=== PATIENT | male | born 1965 ===

== ENCOUNTER 2016-09-12 21:10 | Emergency (ER) | payer MEDICAID ==
[2016-09-12 21:10] VITALS: BMI 27.1
[2016-09-12 21:28] VITALS: BP 154/90; PULSE 86; RESP 74; TEMP 98.2; O2SAT 98
--- NOTE | 2016-09-12 21:35 | ED PDOC ---
HPI: Back Time Seen by Provider: 09/12/16 21:25 Chief Complaint (Nursing): Back Pain Chief Complaint (Provider): Left-Sided Lower Back Pain/Left Leg Pain History Per: Patient History/Exam Limitations: no limitations Onset/Duration Of Symptoms: Intermittent Episodes Current Symptoms Are (Timing): Still Present Additional Complaint(s): Armen Kenny is a 51 year old male that presents to the ED with a chief complaint of left-sided lower back pain that radiates to his left leg down to his knee. Patient reports that he has experienced this type of pain before. He states that he recently traveled to the [place], where he was given 800 mg Ibuprofen, but reports that it did not help to resolve his pain. Past Medical History Reviewed: Historical Data, Nursing Documentation, Vital Signs Vital Signs: Last Vital Signs Temp 98.2 F 09/12/16 21:16 Pulse 86 09/12/16 21:16 Resp 74 H 09/12/16 21:16 BP 154/90 H 09/12/16 21:16 Pulse Ox 98 09/12/16 21:16 - Medical History PMH: Hepatitis (Hepatitis B), HTN - Surgical History Surgical History: Back Surgery - Family History Family History: States: Unknown Family Hx - Immunization History Hx Tetanus Toxoid Vaccination: No Hx Influenza Vaccination: No Hx Pneumococcal Vaccination: No - Home Medications Home Medications: Ambulatory Orders Medication Instructions Recorded Famotidine [Pepcid AC] 20 mg PO BID #20 ctb 03/19/14 Metoprolol Succinate [Toprol XL] 25 mg PO DAILY 03/19/14 Tenofovir Disoproxil Fumarate 300 mg PO DAILY 03/19/14 [Viread] Meclizine [Antivert] 25 mg PO Q6 PRN #30 tab 01/04/16 Methylprednisolone [Medrol Dose 4 mg PO DAILY #1 pkt 09/12/16 Pack (21 tabs)] diaZEpam [Valium] 5 mg PO Q6 PRN #8 tab 09/12/16 - Allergies Allergies/Adverse Reactions: Allergies Allergy/AdvReac Type Severity Reaction Status Date / Time No Known Allergies Allergy Verified 01/04/16 11:19 Review of Systems Musculoskeletal: Positive for: Back Pain (left-sided lower back pain), Leg Pain (left-leg pain down to the knee) Physical Exam - Reviewed Nursing Documentation Reviewed: Yes Vital Signs Reviewed: Yes - Physical Exam Appears: Positive for: Non-toxic, In Acute Distress (Patient is in mild painful distress) Head Exam: Positive for: ATRAUMATIC, NORMOCEPHALIC Skin: Positive for: Normal Color, Warm, Dry Eye Exam: Positive for: Normal appearance, EOMI, PERRL Back: Negative for: Normal Inspection (TTP left paralumbar region) Extremity: Positive for: Tenderness (TTP leftmost side of left leg) Neurologic/Psych: Positive for: Alert, Oriented - ECG O2 Sat by Pulse Oximetry: 98 (RA) Pulse Ox Interpretation: Normal - Progress ED Course And Treament: Duplex left leg: neg for dvt Morphine 4mg IM x 1 dose Medical Decision Making Medical Decision Making: Impression: Left-Sided Lower Back Pain/Left Leg Pain Plan: * Morphine 4 mg IV * Left Leg * Reevaluation Scribe Attestation: Documented by Amaya Cotton, acting as a scribe for Yo Jin PA-C. Provider Scribe Attestation: All medical record entries made by the Scribe were at my direction and personally dictated by me. I have reviewed the chart and agree that the record accurately reflects my personal performance of the history, physical exam, medical decision making, and the department course for this patient. I have also personally directed, reviewed, and agree with the discharge instructions and disposition. Disposition - Clinical Impression Clinical Impression: Sciatica - Patient ED Disposition Is Patient to be Admitted: No - Disposition Referrals: [facility] [Outside] Disposition: Routine/Home Disposition Time: 22:55 Condition: FAIR Prescriptions: diaZEpam [Valium] 5 mg PO Q6 PRN #8 tab PRN Reason: Muscle Spasm Methylprednisolone [Medrol Dose Pack (21 tabs)] 4 mg PO DAILY #1 pkt Instructions: Sciatica (ED) Forms: [facility] ED School/Work Excuse Print Language: BARBADIAN
--- NOTE | 2016-09-13 11:34 | US ---
HISTORY: R/O DVT . PRIORS: None. FINDINGS: 2-D, color and duplex Doppler analysis of the lower extremity venous circulation using routine protocol from the femoral veins through the popliteal veins. Venous compressibility: Normal. Flow and augmentation patterns: Normal. Visualized veins upper third of calf: Normal. La cyst: None. IMPRESSION: No sonographic or Doppler evidence for DVT in left lower extremity. A preliminary report was provided by [employer].
== END 2016-09-12 23:29 | disposition home or self-care (01) ==
LOC: H.ER 21:10
DX: M54.30 Sciatica, unspecified side (principal); M79.605 Pain in left leg; I10 Essential (primary) hypertension